=== PATIENT | male | born 1995 | race Caucasian/White ===

== ENCOUNTER 2017-11-06 18:05 | Emergency (ER) | payer OTHER ==
[2017-11-06 18:41] VITALS: BP 121/71
--- NOTE | 2017-11-06 19:47 | UC ---
FLU HPI - History of Current Complaint Chief Complaint: UCRespiratory Stated Complaint: FLU-LIKE SYMP Time Seen by Provider: 11/06/17 19:32 Hx Obtained From: Patient Onset/Duration: Sudden Onset - started vomiting at 6am this am, then experienced chills, fatigue, cough and body aches Severity Initially: Moderate Pain Intensity: 6 Associated Signs & Symptoms: Positive: Fever, Vomiting - Allergy/Home Medications Allergies/Adverse Reactions: Allergies Allergy/AdvReac Type Severity Reaction Status Date / Time No Known Allergies Allergy Verified 11/06/17 18:41 Home Medications: Home Medications Ibuprofen TAB* [Advil TAB*] 200 mg PO ONCE 11/06/17 [History Confirmed 11/06/17] PMH/Surg Hx/FS Hx/Imm Hx Previously Healthy: Yes - Surgical History Surgical History: None - Family History Known Family History: Positive: None - Social History Occupation: Student Lives: With Family Alcohol Use: Occasionally Substance Use Type: None Smoking Status (MU): Never Smoked Tobacco Review of Systems Constitutional: Chills, Fatigue Skin: Negative ENT: Negative Respiratory: Cough Cardiovascular: Negative Gastrointestinal: Vomiting - x 3 this am-last at noon Neurological: Negative Psychological: Negative Is Patient Immunocompromised?: No All Other Systems Reviewed And Are Negative: Yes Physical Exam Triage Information Reviewed: Yes Appearance: Well-Appearing, No Pain Distress, Well-Nourished Vital Signs: Initial Vital Signs Temp 99.6 F 11/06/17 18:39 Pulse 89 11/06/17 18:39 Resp 18 11/06/17 18:39 BP 121/71 11/06/17 18:39 Pulse Ox 99 11/06/17 18:39 Vital Signs Reviewed: Yes Eyes: Positive: Conjunctiva Clear ENT: Positive: Pharynx normal Respiratory Exam: Normal Respiratory: Positive: Lungs clear Cardiovascular Exam: Normal Abdominal Exam: Normal Abdomen Description: Positive: Nontender, No Organomegaly, Soft Musculoskeletal Exam: Normal Neurological Exam: Normal Psychological Exam: Normal Skin Exam: Normal Flu Course/Dx - Differential Dx/Diagnosis Differential Diagnosis/HQI/PQRI: Influenza, Pneumonia, Upper Respiratory Infection, Other - viral illness, gastroenteritis Provider Diagnoses: viral illness Discharge - Discharge Plan Condition: Good Disposition: HOME Patient Education Materials: Gastroenteritis (ED), Clear Liquid Diet (ED) Referrals: No Primary Care Phys,NOPCP [Primary Care Provider] - [facility] - Daron CHAVEZ [Medical Doctor] - 2 Days (if no better) Additional Instructions: Rest drink plenty of clear flluids use tylenol for fever and pain
== END 2017-11-06 20:35 | disposition home or self-care (01) ==
LOC: UCEAST 18:05
DX: B34.9 Viral infection, unspecified (principal)
CPT/HCPCS: 87502; 99211; G0463